=== PATIENT | female | born 1960 | race Caucasian/White ===

== ENCOUNTER 2023-10-14 15:12 | Inpatient (IN) | payer OTHER, SELFPAY ==
[2023-10-14] VITALS (19 sets, daily range): BP systolic 89–135; BP diastolic 46–109
--- NOTE | 2023-10-14 13:37 | ED.GENMED ---
History of Present Illness
<Eber Neely PA-C - Last Filed: 10/14/23 13:48>
General
Chief Complaint: Chest Pain
Time Seen by Provider: 10/14/23 13:37
Travel History
Have you had any contact with someone who has COVID-19?: No
Do you have any symptoms of coronavirus? Fever > 100 degrees, chills, cough, shortness of breath, sore throat, loss of taste or smell, muscle aches, or headache?: No
History of Present Illness
History of Present Illness:
63-year-old female with history of tobacco abuse presents to the emergency department for evaluation of chest pain beginning approximate 2 hours prior to arrival. She describes a pressure in the chest that radiates to the throat. She does endorse
having jaw and throat discomfort with exertion over the past 2 weeks that has been gradually worsening. Has never had any prior diagnosed coronary artery disease. Denies history of hypertension or hyperlipidemia. Does note a strong family history
of coronary disease. Currently reports a pain rated 8 out of 10.
Past History
<Eber Neely PA-C - Last Filed: 10/14/23 13:48>
Past History
ED Past Medical History: Hypothyroidism
ED Past Surgical History: Gynecological and Other (Cornea transplant)
Social History
Tobacco: Smoker
Alcohol: None
Living: with family
Employment: Employed
Review of Systems
<Eber Neely PA-C - Last Filed: 10/14/23 13:48>
Review of Systems
Allergies reviewed?: Yes
All Other Systems: ROS reviewed and negative except as documented in HPI and ROS
Phy Exam
<Eber Neely PA-C - Last Filed: 10/14/23 13:48>
Physical Exam
Physical Exam:
GEN: Well appearing, NAD, WDWN
HEENT: Oral mucosa moist, no scleral icterus
Cardiac: Regular rate and rhythm, no murmurs
Lung: No respiratory distress, no tachypnea lungs clear to auscultation bilaterally
MSK: No gross deformity or injuries
Skin: Good color, no pallor or jaundice, no rashes
Neuro: AO x3, moves all extremities freely
Psych: Calm, cooperative
Scores
<Eber Neely PA-C - Last Filed: 10/14/23 13:48>
Heart Score for Chest Pain Patients
STEMI patient?: Yes
Course
<Eber Neely PA-C - Last Filed: 10/14/23 13:48>
Orders/Labs/Results
Orders:
Orders
10/14/23 13:25
Electrocardiogram (*1) Urgent
Reason for Study: Chest Pain
EKG- Treatment ONCE
Complete Blood Count/With Diff Urgent
10/14/23 13:34
Heparin 5,000 units .ROUTE .STK-MED ONE
10/14/23 13:36
Comprehensive Metabolic Panel Urgent
Troponin I Urgent
10/14/23 13:37
CXR Port [CR Chest Portable - 1 View] Urgent
Comment:
Reason For Exam: chest pain
Reason Study Needs to be Portable: Unable to Transport
10/14/23 13:38
PT/INR [Prothrombin Time] Urgent
10/14/23 13:42
Aspirin Chewable [Low Strength Aspirin] 324 mg .ROUTE .STK-MED ONE
Ticagrelor [Brilinta] 180 mg .ROUTE .STK-MED ONE
<Kathy Pool MD - Last Filed: 10/14/23 13:52>
Orders/Labs/Results
Orders:
Orders
10/14/23 13:25
Electrocardiogram (*1) Urgent
Reason for Study: Chest Pain
EKG- Treatment ONCE
Complete Blood Count/With Diff Urgent
10/14/23 13:34
Heparin 5,000 units .ROUTE .STK-MED ONE
10/14/23 13:36
Comprehensive Metabolic Panel Urgent
Troponin I Urgent
10/14/23 13:37
CXR Port [CR Chest Portable - 1 View] Urgent
Comment:
Reason For Exam: chest pain
Reason Study Needs to be Portable: Unable to Transport
10/14/23 13:38
PT/INR [Prothrombin Time] Urgent
10/14/23 13:42
Aspirin Chewable [Low Strength Aspirin] 324 mg .ROUTE .STK-MED ONE
Ticagrelor [Brilinta] 180 mg .ROUTE .STK-MED ONE
<Eber Neely PA-C - Last Filed: 10/14/23 13:48>
MDM/Problems Addressed
MDM/Problems Addressed:
Show after patient's arrival and after personal review the EKG a STEMI alert was called. Patient was loaded with aspirin and Brilinta and given IV bolus of heparin. At 1331 I called interventional cardiology Dr. Espinal who is around the emergency
department to evaluate the patient. Dr. Espinal arrived at 1337 and is in agreement with take the patient urgently for intervention. Remained clinically stable in the emergency department. She has no vital sign instability or radiating pain to the
back to suggest a thoracic aortic dissection. No dyspnea to suggest acute pulmonary embolism.
<Eber Neely PA-C - Last Filed: 10/14/23 13:48>
Comment
Comment:
EKG independently interpreted by me at 1329 shows normal sinus rhythm with ST elevations inferiorly, reciprocal ST depressions laterally, suspicious for STEMI
*Critical Care Note
Total Time (30-74mins, 75-104mins- exclusive of procedures): 18 minutes
comment:
Critical care time: 18 min
Critical care time was exclusive of: Separately billable procedures, treating other patients, and teaching time
Critical care was necessary to treat or prevent imminent or life-threatening deterioration of the following conditions: STEMI
Critical care time spent personally by me on the following activities:
[x] Review of old charts
[x] Obtaining history from patient or surrogate
[x] Ordering and review of the laboratory studies
[ ] Ordering and review of radiographic studies
[x] Ordering and performing treatments and interventions
[x]Patient patient's response to treatment
[x] Development of treatment plan with patient or surrogate
<Eber Neely PA-C - Last Filed: 10/14/23 13:48>
Update Note
Update Note:
1331:
ED Attending Note
<Eber Neely PA-C - Last Filed: 10/14/23 13:48>
-
Portions of this chart may have been created with voice recognition software.� Occasional wrong word or��sound alike� substitutions may have occurred due to the inherent limitations of voice recognition software.
<Kathy Pool MD - Last Filed: 10/14/23 13:52>
ED Attending Note
Patient seen and examined by attending physician: Yes
I performed the substantive portion of visit, reviewed & personally made and approve the management plan that is documented in note by myself or JACQUI.: Yes
ED Attending Note:
63 yr with c/o sp, seen to have STEMI on triage ECG here. Patient seen by VINCENZO Lundberg, and Dr. Pro at bedside consenting patient for emergent cath. Overall patient well-appearing, pleasant, understands plan of care. Chest x-ray canceled given
patient on her way to cath now.
Discharge Plan
Departure
Patient Disposition: [facility]
Date of Disposition: 10/14/23
Time of Disposition: 13:48
Presentation/result/management discussed w/ accepting MD/DO: Cardiology Dr Pro
Discharge Problem:
ST elevation (STEMI) myocardial infarction
Prescriptions:
No Action
levothyroxine 100 MCG tablet
100 mcg PO DAILY
calcium carbonate [Oyster Shell Calcium 500] 500 MG tablet
500 mg PO BID
acetaminophen 325 MG tablet
650 mg PO Q4HPRN PRN (Reason: temp > 100.4 F) 0RF
tamsulosin 0.4 MG capsule
0.4 mg PO DAILY Qty: 14 0RF
cephalexin 500 MG capsule
500 mg PO QID Qty: 28 0RF
Interventions
Interventions:
*ED COVID-19 Vaccine History Last Done: 10/14/23 13:30
Discharge Date and Time
Print Language: MARSHALLESE
[2023-10-14 13:52] LABS: % Basophils 0.6 % (0-2); % Eosinophils 0.4 % (0-6); % Immature Granulocytes 0.4 % (0-0.5); % Lymphocytes 13.3 % (20.5-51.1); % Monocytes 3.5 % (1.7-9.3); % Neutrophils 81.8 % (42.2-75.2); Absolute Basophils 0.1 10^3/uL (0-0.2); Absolute Lymphocytes 1.1 10^3/uL (1.2-3.4); Absolute Monocytes 0.3 10^3/uL (0.1-0.6); Hematocrit 38.8 % (37.0-47.0); Hemoglobin 13.4 g/dL (12.0-16.0); Mean Corp Hgb Conc. 34.5 g/dL (33.0-37.0); Mean Corpuscular Hgb 32.9 pg (27.0-31.0); Mean Corpuscular Volume 95.3 fL (81.0-99.0); Mean Platelet Volume 9.2 fL (7.4-10.4); Nucleated Red Blood Cells % 0 %; Platelet Count 316 10^3/uL (130-400); Red Blood Cell Count 4.07 10^6/uL (4.20-5.40); Red Cell Dist. Width 12.6 % (11.5-14.5); White Blood Cell Count 8.5 10^3/uL (4.8-10.8)
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
[2023-10-14 14:05] LABS: ACT-LR - POC 184 Seconds (116-155)
[2023-10-14 14:07] LABS: ALT (SGPT) 18 U/L (0-35); AST (SGOT) 26 U/L (14-36); Albumin 4.4 g/dl (3.5-5.0); Alkaline Phosphatase 85 U/L (38-126); Blood Urea Nitrogen 12 mg/dl (7-17); Calcium 9.6 mg/dl (8.4-10.2); Carbon Dioxide 26 mmol/L (22-30); Chloride 106 mmol/L (98-107); Glucose 110 mg/dl (70-99); Potassium 4.5 mmol/L (3.5-5.1); Sodium 136 mmol/L (135-145); Total Bilirubin 0.5 mg/dl (0.2-1.3); Total Protein 6.9 g/dl (6.3-8.2); eGFR > 60.00
[2023-10-14 14:15] LABS: ACT-LR - POC 269 Seconds (116-155)
[2023-10-14 14:21] LABS: Troponin I 0.054 ng/ml
[2023-10-14 14:52] LABS: ACT-LR - POC 281 Seconds (116-155)
--- NOTE | 2023-10-14 15:01 | ITS.CL.CATH ---
[employer] Service Team Member - Catheterization
Cardiac Catheterization
Procedure Report:
LEFT HEART CATH AND CORONARY INTERVENTION
Date of Procedure: October 14, 2023
Referring: [facility] Emergency Department
PROCEDURES:
Left heart catheterization with coronary and single-plane left ventriculography
INDICATION: Evolving inferior STEMI
ACCESS: Right radial artery, 6 American sheath
HEMODYNAMICS (mmHg):
AO (s/d, m) : 135/79
LV (s/d) : 130/18
LVEDP : 24
CORONARY FINDINGS
Dominance: Right
LEFT MAIN: Short and unobstructed
LEFT ANTERIOR DESCENDING: The LAD arises normally from the left main and runs in the anterior interventricular groove. Diffuse 30-40% stenosis in the mid LAD. The LAD approaches but does not wraparound the apex. A terminal diagonal branch
parallels the LAD
CIRCUMFLEX: The circumflex is a medium caliber nondominant vessel that gives rise to a single sizable obtuse marginal branch. Minor irregularities are noted. The AV circumflex supplies a very small terminal obtuse marginal branch
RIGHT CORONARY: The right coronary artery is a dominant vessel with a 60% stenosis just proximal to an RV marginal branch. The mid to distal RCA has sluggish flow and haziness in the distal RCA becomes 100% occluded proximal to the crux in the
vessel. The distal right coronary artery was noted to fill via left to right collaterals
VENTRICULOGRAPHY: Left ventriculography was performed in an CLARK projection. The digital single-plane left ventricular ejection fraction is estimated at 40% with posterobasal, diaphragmatic, and inferior apical severe hypokinesis
ANGIOPLASTY PROCEDURE DETAIL: Upon review of the diagnostic catheterization films the decision was made to proceed with percutaneous revascularization of the 100% occluded distal RCA. Patient had received a 180 mg loading dose of ticagrelor and 324
mg of aspirin while in the emergency department. Intravenous heparin was administered in the emergency department and the ACT was monitored throughout the procedure and maintained within therapeutic limits.
The origin of the right coronary artery was cannulated with a 6 American JR4 guiding catheter and a BMW guidewire was advanced across the occluded segment and into the PDA. Balloon predilation was performed with a 2.0 x 15 mm Trek balloon. Antegrade
flow was restored to the distal RCA but the patient became profoundly hypotensive and experienced a mild bradycardic effect. A normal saline bolus was administered. The heart rate and blood pressure remain low. Atropine, 0.2 mg, was administered
with very rapid improvement in blood pressure and heart rate. The patient became nauseated. ECG changes persisted and angiography revealed the distal RCA reoccluded following balloon dilation and a 2.0 mm trek balloon was then advanced over the
guidewire and reinflation was performed. Antegrade flow was restored allowing for delivery of a 2.75 x 28 mm Xience stent to the distal RCA/crux of the vessel where it was deployed at nominal pressures. A 3.5 x 33 mm Xience stent was then advanced
over the guidewire and positioned proximal to and overlapping with the distal RCA stent. The entirety of the mid RCA was successfully stented with a 3.5 x 33 mm Xience stent. The distal stented segment was postdilated with a 3.25 mm noncompliant
balloon to high pressures while the area of stent overlapped into the proximal RCA was postdilated with high-pressure balloon inflations with a 3.5 mm noncompliant balloon with a nice angiographic result
RADIATION SUMMARY: Fluoro Time (min): 10.5, Dose (mGy): 400.4, DAP (Gy.cm2) : 34.6
CONCLUSIONS
1. Acute inferior wall myocardial infarction with 100% occlusion in the distal RCA. The distal RCA was successfully stented from the crux more proximally with a 2.75 x 28 mm Xience stent that was implanted at nominal pressures. The mid RCA and
residual atherosclerotic disease and a 3.5 x 33 mm Xience stent was then advanced over the guidewire and positioned proximal to and overlapping with the more distal stent. The distal stented segment was postdilated with a 3.25 mm noncompliant
balloon to high pressures while the area of stent overlap to the mid LAD was postdilated with a 3.5 mm noncompliant balloon
2. Ischemic cardiomyopathy with an estimated ejection fraction of 40%. The posterior basal, diaphragmatic, and inferoapical andrade are severely hypokinetic
RECOMMENDATIONS
1. Trend troponin to peak every 8 hours
2. Check echocardiogram
3. Fasting lipid profile with planned high intensity lipid-lowering
4. Uninterrupted dual antiplatelet therapy for 12 months. Will assess affordability of ticagrelor versus clopidogrel
5. Smoking cessation has been strongly encouraged
Copy to: Dr. Angelito Deal, Dr. Horacio Pro
[2023-10-14] MEDS: NSS 1000 IV (15:08)
[2023-10-14 15:46] LABS: ACT-LR - POC > 397 Seconds (116-155)
[2023-10-14] MEDS: LIPITOR 80 MG PO (17:54)
[2023-10-14] MEDS: TYLENOL 650 MG PO (18:51)
--- NOTE | 2023-10-14 23:10 | PTCARENOTE ---
Rec'd pt. at change of shift AAOx3; VSS, NSR with PVC's on the monitor. Pt. denied any CP/discomfort, right radial cath site dressing CDI with no S&S of hematoma, radial pulse palpable. Pt. did have 12 beat run VT at 2123 while talking on the
phone. Stated she didn't feel it, but did have some right sided chest discomfort approx 20 minutes earlier, lasted a few minutes, dull & achy level 2 out of 10, completely stopped prior to VT. BP 94/64, pulse ox 98% RA. Dr. FAUSTO Dickey notified,
advised to monitor for now. Pt. currently resting quietly without complaint.
[2023-10-15] VITALS (7 sets, daily range): BP systolic 87–104; BP diastolic 51–63; BMI 20.5
[2023-10-15 06:54] LABS: Hematocrit 32.1 % (37.0-47.0); Hemoglobin 10.9 g/dL (12.0-16.0); Mean Corpuscular Hgb 32.6 pg (27.0-31.0); Mean Corpuscular Volume 96.1 fL (81.0-99.0); Mean Platelet Volume 9.4 fL (7.4-10.4); Platelet Count 235 10^3/uL (130-400); Red Blood Cell Count 3.34 10^6/uL (4.20-5.40); Red Cell Dist. Width 12.5 % (11.5-14.5); White Blood Cell Count 6.8 10^3/uL (4.8-10.8)
[2023-10-15 07:19] LABS: Blood Urea Nitrogen 10 mg/dl (7-17); Calcium 8.6 mg/dl (8.4-10.2); Carbon Dioxide 25 mmol/L (22-30); Chloride 111 mmol/L (98-107); Glucose 84 mg/dl (70-99); HDL Cholesterol 44 mg/dl; LDL Cholesterol, Calculated 61 mg/dl; Potassium 3.8 mmol/L (3.5-5.1); Sodium 137 mmol/L (135-145); Total Cholesterol 126 mg/dl (50-199); Triglyceride 107 mg/dl (10-149); Very Low Density Lipoprotein 21 mg/dl (0-30); eGFR > 60.00
[2023-10-15] MEDS: BRILINTA 90 MG PO ×2 (08:13→19:44)
[2023-10-15] MEDS: KCL 20 MEQ PO (08:13)
[2023-10-15] MEDS: LOW STRENGTH ASPIRIN 81 MG PO (08:13)
[2023-10-15 08:32] LABS: Glycohemoglobin (HgbA1c) 5.4 % (4.0-5.6)
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
--- NOTE | 2023-10-15 10:12 | CM ---
Reviewed chart. Met with Ms. Dickey to review discharge plans. She states prior to admission she resides alone in a one story home with a ramp to enter. She states she resides at [facility] She states prior to admission
she was independent with ambulation and adls. She states she does not have any DME in the home. She states she has a prescription plan and uses [facility]. Telephone call to [facility] to check on co-pay for Brilinta 90 mg po bid. Her
co-pay would be $30.00 a month. She has commercial insurance so she can use the $5.00 coupon. Placed the $5.00 coupon in her red discharge folder. [facility] states they have Brilinta 90 mg po bid in stock. Medical work-up in progress. The
discharge plan is to return home when medically stable.
[2023-10-15] MEDS: TYLENOL 650 MG PO (12:19)
--- NOTE | 2023-10-15 12:20 | PTCARENOTE ---
patient c/o headache Tylenol po given as ordered.
[2023-10-15] MEDS: LIPITOR 80 MG PO (17:51)
[2023-10-15] MEDS: LOVENOX 40 MG SC (17:52)
--- NOTE | 2023-10-15 20:44 | PTCARENOTE ---
Pt received at start of shift, HR SB w/ prolonged QT. R radial cath site dressing CDI, slight ecchymosis surrounding site. Reinforced purpose of Brilinta and importance of medication adherence, pt states understanding. Pt denies any CP, SOB, or
lightheadedness/dizziness. Informed to notify RN if any changes, call davey within reach.
Pt worried about activity restrictions and resuming work as she works in floral dept at [employer], states she has to lift many heavy things in a shift.
[2023-10-16 04:35] VITALS: BP 106/65
[2023-10-16 05:14] LABS: Hematocrit 33.2 % (37.0-47.0); Hemoglobin 11.4 g/dL (12.0-16.0); Mean Corp Hgb Conc. 34.3 g/dL (33.0-37.0); Mean Corpuscular Hgb 33.2 pg (27.0-31.0); Mean Corpuscular Volume 96.8 fL (81.0-99.0); Mean Platelet Volume 9.6 fL (7.4-10.4); Platelet Count 250 10^3/uL (130-400); Red Blood Cell Count 3.43 10^6/uL (4.20-5.40); Red Cell Dist. Width 12.2 % (11.5-14.5); White Blood Cell Count 6.4 10^3/uL (4.8-10.8)
[2023-10-16 05:40] LABS: Blood Urea Nitrogen 9 mg/dl (7-17); Calcium 8.8 mg/dl (8.4-10.2); Carbon Dioxide 26 mmol/L (22-30); Chloride 109 mmol/L (98-107); Estimated Creatinine Clearance 77 ml/min; Glucose 80 mg/dl (70-99); Potassium 3.9 mmol/L (3.5-5.1); Sodium 137 mmol/L (135-145); eGFR > 60.00
[2023-10-16] MEDS: SYNTHROID 75 MCG PO (07:03)
[2023-10-16 07:32] VITALS: BP 93/60
[2023-10-16 08:47] VITALS: BP 92/59
[2023-10-16] MEDS: FLUSH (NSS) 1 FLUSH IV (08:47)
[2023-10-16] MEDS: LOW STRENGTH ASPIRIN 81 MG PO (08:47)
[2023-10-16] MEDS: BRILINTA 90 MG PO (08:47)
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
--- NOTE | 2023-10-16 10:04 | PTCARENOTE ---
Received patient this morning ambulating in her room. Right radial site open to air, mild ecchymosis, but no signs of a hematoma and a strong radial pulse is present. She is anxious to go home, waiting for cardiology to evaluate her.
[2023-10-16 11:02] VITALS: BP 97/61
--- NOTE | 2023-10-16 11:10 | W.DS.TRANS ---
DC Summary - [employer]
-
Discharge Instructions:
Discharge Diagnosis/Procedures STEMI, s/p angioplasty and stent x2 to Right
Coronary artery
Diet Low Cholesterol
Driving Restrictions As prior to admission
Other Services Cardiac Rehab
Instructions:
Stand-Alone Forms: DC Instructions- Cath/EP Lab
Return to Work
Changes to Home Medications: Yes
Discharge Medications:
DC Medications w/original date entered in [facility]
aspirin 81 mg chewable tablet (Children's Aspirin) 81 mg PO DAILY #0 tabs 10/16/23
atorvastatin 80 mg tablet 80 mg PO QPM #90 tabs 10/16/23
levothyroxine 75 mcg tablet 75 mcg PO DAILY 10/16/23
ticagrelor 90 mg tablet (Brilinta) 90 mg PO BID #180 tabs 10/16/23
Home Medication Changes
NEW: aspirin, atorvastatin, ticagrelor
Pending Results: No
--- NOTE | 2023-10-16 12:00 | PTCARENOTE ---
Reviewed discharge instructions including medications, cardiac rehab and follow up appointments with the patient and her daughter. Patient discharged home with her daughter.
== END 2023-10-16 15:11 | disposition home or self-care (01) | DRG 322 ==
LOC: IVU 15:12
PROVIDERS: Nurse Practitioner; Physician Assistant; Student in an Organized Health Care Education/Training Program; ADMITTING PHYSICIAN Internal Medicine Interventional Cardiology; EMERGENCY PHYSICIAN Emergency Medicine
PROC: 4A023N7 Measurement of Cardiac Sampling and Pressure, Left Heart, Percutaneous Approach (ICD-10-PCS; 2023-10-14)
PROC: 027035Z Dilation of Coronary Artery, One Artery with Two Drug-eluting Intraluminal Devices, Percutaneous Approach (ICD-10-PCS; 2023-10-14)
PROC: B2111ZZ Fluoroscopy of Multiple Coronary Arteries using Low Osmolar Contrast (ICD-10-PCS; 2023-10-14)
PROC: B2151ZZ Fluoroscopy of Left Heart using Low Osmolar Contrast (ICD-10-PCS; 2023-10-14)
DX: I21.19 ST elevation (STEMI) myocardial infarction involving other coronary artery of inferior wall (principal); I47.20 Ventricular tachycardia, unspecified; E03.9 Hypothyroidism, unspecified; I25.10 Atherosclerotic heart disease of native coronary artery without angina pectoris; I25.5 Ischemic cardiomyopathy; H54.61 Unqualified visual loss, right eye, normal vision left eye; R73.01 Impaired fasting glucose; M85.80 Other specified disorders of bone density and structure, unspecified site; I95.9 Hypotension, unspecified; R00.1 Bradycardia, unspecified; I49.3 Ventricular premature depolarization; I77.810 Thoracic aortic ectasia; Z79.899 Other long term (current) drug therapy; Z82.49 Family history of ischemic heart disease and other diseases of the circulatory system; Z87.891 Personal history of nicotine dependence; Z94.7 Corneal transplant status
CPT/HCPCS: 80048; 80053; 80061; 83036; 84484; 85025; 85027; 85347; 85610; 93005; 93306; 93458; 99285; C1725; C1769; C1874; C1894; C9606; Q9967

== ENCOUNTER 2023-11-21 09:49 | Outpatient (RCR) | payer OTHER, SELFPAY | END 2023-11-21 23:59 | disposition home or self-care (01) | LOC: CRHB 09:49 | PROVIDERS: ATTENDING PHYSICIAN Internal Medicine Interventional Cardiology | DX: I21.01 ST elevation (STEMI) myocardial infarction involving left main coronary artery (principal); Z95.5 Presence of coronary angioplasty implant and graft | CPT/HCPCS: 93797; 93798 ==

== ENCOUNTER 2023-12-03 08:30 | Outpatient (RCR) | payer OTHER, SELFPAY | END 2023-12-03 23:59 | disposition home or self-care (01) | LOC: CRHB 08:30 | PROVIDERS: ATTENDING PHYSICIAN Internal Medicine Interventional Cardiology; FAMILY PHYSICIAN Internal Medicine | DX: I25.10 Atherosclerotic heart disease of native coronary artery without angina pectoris (principal); I25.2 Old myocardial infarction; Z95.5 Presence of coronary angioplasty implant and graft | CPT/HCPCS: 93797; 93798 ==

== ENCOUNTER → 2023-12-03 12:28 | Outpatient (REF) | payer OTHER, SELFPAY | LOC: RAD 12:28 | PROVIDERS: ATTENDING PHYSICIAN Nurse Practitioner Family | DX: R30.0 Dysuria (principal); R31.29 Other microscopic hematuria; M54.9 Dorsalgia, unspecified; Z87.442 Personal history of urinary calculi | CPT/HCPCS: 74176 ==

== ENCOUNTER 2023-12-06 21:32 | Inpatient (IN) | payer OTHER, MEDICARE, SELFPAY ==
[2023-12-06 15:29] VITALS: BP 135/75
[2023-12-06] MEDS: OMNIPAQUE 50 ML PO (16:10)
--- NOTE | 2023-12-06 16:10 | ED.GENMED ---
History of Present Illness
General
Chief Complaint: Abdominal Pain
Source: patient
Exam Limitations: none
Time Seen by Provider: 12/06/23 15:49
Travel History
Have you had any contact with someone who has COVID-19?: No
Do you have any symptoms of coronavirus? Fever > 100 degrees, chills, cough, shortness of breath, sore throat, loss of taste or smell, muscle aches, or headache?: No
History of Present Illness
History of Present Illness:
63-year-old female presents with generalized abdominal pain weight loss and decreased appetite. She notes she lost about 15 pounds in a month. She had a myocardial infarction about a month ago. She notes urinary symptoms as well as dark-colored
urine. No fever no vomiting. She notes lack of bowel movement. No fever. She was called by her family doctor and states that her labs were abnormal. No other complaints at this time
Past History
Past History
ED Past Medical History: Hypothyroidism
ED Past Surgical History: Gynecological and Other (Cornea transplant)
Social History
Tobacco: Smoker
Alcohol: None
Living: with family
Employment: Employed
Phy Exam
Physical Exam
Physical Exam:
General: Slightly cachectic appearing female no acute respiratory distress
HEENT: Normocephalic atraumatic
Heart: Regular rate and rhythm no murmurs
Lungs: Clear no wheeze or rales
Abdomen soft tender to the epigastric and right mid abdomen. No guarding rebound normal bowel sounds nondistended
Extremities: No cyanosis
Course
Orders/Labs/Results
Orders:
Orders
12/06/23 16:03
CT Abd/pel W Iv And Oral Contr Urgent
Comment:
Reason For Exam: abdominal pain, weight loss,
Iohexol [Omnipaque] See Protocol PO NOW STA
12/06/23 16:05
Complete Blood Count/With Diff Urgent
Comprehensive Metabolic Panel Urgent
Lipase Urgent
Urinalysis Reflex To Culture Urgent
Date Specimen was Collected: 12/06/23
Time Specimen was Collected: 15:57
Urine Microscopic Reflex Cult Urgent
Urine Culture Urgent
ESCOBAR Source: U
Specimen Description:
Date Specimen was Collected: 12/06/23
Time Specimen was Collected: 15:57
12/06/23 20:28
0.9% Sodium Chloride 1000 ml [Nss] 1,000 ml IV BOLUS
CefTRIAXone [Rocephin] 1,000 mg IV NOW STA
Abnormal Lab Results
12/06/23
16:05
RBC 3.60 L 10^6/uL
(4.20-5.40)
Hgb 11.5 L g/dL
(12.0-16.0)
Hct 33.2 L %
(37.0-47.0)
MCH 31.9 H pg
(27.0-31.0)
Plt Count 432 H 10^3/uL
(130-400)
Absolute Monos (auto) 0.7 H 10^3/uL
(0.1-0.6)
Absolute Eos (auto) 0.8 H 10^3/uL
(0-0.7)
Eosinophils % 9.0 H %
(0-6)
Potassium 3.3 L mmol/L
(3.5-5.1)
Creatinine 0.5 L mg/dL
(0.6-1.0)
AST 145 H U/L
(14-36)
ALT 145 H U/L
(0-35)
Alkaline Phosphatase 1648 H U/L
(38-126)
Urine Ketones 1+ A
(Negative)
Ur Occult Blood Reflex 3+ A
(Negative)
Urine Nitrite (Reflex) Positive A
(Negative)
Urine Bilirubin 1+ A
(Negative)
Urine Urobilinogen 3+ A
(Neg - 1+)
Leukocyte Esterase Rfl 2+ A
(Negative)
Urine RBC 16-20 A /HPF
(0-2)
Urine WBC (Reflex) 26-30 A /HPF
(0-5)
Urine Bacteria (Reflex) Many A
(Negative)
12/06/23 16:05
12/06/23 16:05
Vital Signs
Initial and Last Documented VS:
Initial Vital Signs
Temp Pulse Resp BP Pulse Ox
98.1 F 95 20 135/75 98
12/06/23 15:29 12/06/23 15:29 12/06/23 15:29 12/06/23 15:29 12/06/23 15:29
Last Documented Vital Signs
Temp Pulse Resp BP Pulse Ox
98.1 F 95 20 135/75 98
12/06/23 15:29 12/06/23 15:29 12/06/23 15:29 12/06/23 15:29 12/06/23 15:29
MDM/Problems Addressed
Differential Diagnosis Includes:
Fatigue weight loss abdominal pain nausea. Consider biliary colic versus [place] versus bowel obstruction
Check labs. CT with oral and IV contrast pending.
*Critical Care Note
Total Time (30-74mins, 75-104mins- exclusive of procedures): Not Applicable
Update Note
Update Note:
Urinalysis nitrite positive with bacteria and white cells. Suspect UTI. CT demonstrates jejunal to jejunal intussusception without obvious obstruction. Spoke with general surgery regarding these findings. Given the tenderness on exam and
elevated LFTs with ongoing pain and weight loss, will keep in hospital for further evaluation. Rocephin and fluids ordered for UTI
ED Attending Note
-
Portions of this chart may have been created with voice recognition software.� Occasional wrong word or��sound alike� substitutions may have occurred due to the inherent limitations of voice recognition software.
Discharge Plan
Departure
Patient Disposition: Admit
Date of Disposition: 12/06/23
Time of Disposition: 20:33
Admit to: Telemetry
Presentation/result/management discussed w/ accepting MD/DO: Hospitalist
Discharge Problem:
Acute UTI, Intussusception
Prescriptions:
No Action
Brilinta 90 mg Tablet
90 mg PO BID Qty: 180 3RF
atorvastatin 80 mg Tablet
80 mg PO QPM Qty: 90 3RF
aspirin [Children's Aspirin] 81 mg Tablet,Chewable
81 mg PO DAILY Qty: 0 0RF
levothyroxine 75 mcg Tablet
75 mcg PO DAILY
Referrals:
Angel Theodore MD [Family Provider] -
Interventions
Interventions:
*ED COVID-19 Vaccine History Last Done: 12/06/23 15:29
FY-Pjgghb-Edjiodtcmr Assessment Last Done: 12/06/23 16:14
Discharge Date and Time
Print Language: CYPRIOT
[2023-12-06 16:15] LABS: % Basophils 1.4 % (0-2); % Immature Granulocytes 0.5 % (0-0.5); % Lymphocytes 27.1 % (20.5-51.1); % Monocytes 8.3 % (1.7-9.3); % Neutrophils 53.7 % (42.2-75.2); Absolute Basophils 0.1 10^3/uL (0-0.2); Absolute Eosinophils 0.8 10^3/uL (0-0.7); Absolute Lymphocytes 2.3 10^3/uL (1.2-3.4); Absolute Monocytes 0.7 10^3/uL (0.1-0.6); Absolute Neutrophils 4.5 10^3/uL (1.4-6.5); Hematocrit 33.2 % (37.0-47.0); Hemoglobin 11.5 g/dL (12.0-16.0); Mean Corp Hgb Conc. 34.6 g/dL (33.0-37.0); Mean Corpuscular Hgb 31.9 pg (27.0-31.0); Mean Corpuscular Volume 92.2 fL (81.0-99.0); Mean Platelet Volume 9.7 fL (7.4-10.4); Nucleated Red Blood Cells % 0 %; Platelet Count 432 10^3/uL (130-400); Red Cell Dist. Width 12.8 % (11.5-14.5); White Blood Cell Count 8.3 10^3/uL (4.8-10.8)
[2023-12-06 16:23] LABS: Urine Albumin Trace (Neg - Trace); Urine Bilirubin 1+ (Negative); Urine Character Slightly Cloudy (Clear); Urine Color Amber; Urine Glucose Negative (Negative); Urine Ketone 1+ (Negative); Urine Leukocyte 2+ (Negative); Urine Nitrite Positive (Negative); Urine Occult Blood 3+ (Negative); Urine Specific Gravity 1.025 (<1.030); Urine Urobilinogen 3+ (Neg - 1+)
[2023-12-06 16:27] LABS: ALT (SGPT) 145 U/L (0-35); AST (SGOT) 145 U/L (14-36); Albumin 3.8 g/dl (3.5-5.0); Blood Urea Nitrogen 9 mg/dl (7-17); Calcium 9.4 mg/dl (8.4-10.2); Carbon Dioxide 28 mmol/L (22-30); Chloride 103 mmol/L (98-107); Glucose 91 mg/dl (70-99); Lipase 236 U/L (23-300); Potassium 3.3 mmol/L (3.5-5.1); Sodium 139 mmol/L (135-145); Total Protein 7.2 g/dl (6.3-8.2); eGFR > 60.00
[2023-12-06 16:37] LABS: Alkaline Phosphatase 1648 U/L (38-126)
[2023-12-06 16:46] LABS: Urine Bacteria Many (Negative); Urine Mucus Few; Urine Red Blood Cell 16-20 /HPF (0-2); Urine White Cell 26-30 /HPF (0-5)
[2023-12-06 16:47] LABS: Urine Calcium Oxalate Crystals Present
[2023-12-06] MEDS: NSS 1000 IV ×2 (20:38→22:51)
[2023-12-06] MEDS: ROCEPHIN 1000 MG IV (20:39)
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
[2023-12-06 20:42] VITALS: BP 113/63
[2023-12-06 22:00] VITALS: BP 111/72
[2023-12-06] MEDS: BRILINTA PO (22:34)
[2023-12-06 22:45] VITALS: BP 113/67; BMI 19.3
[2023-12-06 23:00] VITALS: BP 113/67
[2023-12-06] MEDS: BENADRYL 25 MG PO (23:53)
[2023-12-07 03:00] VITALS: BP 108/59
[2023-12-07] MEDS: SYNTHROID 75 MCG PO (06:24)
[2023-12-07 07:00] VITALS: BP 104/58
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
[2023-12-07 08:25] LABS: % Basophils 1.3 % (0-2); % Eosinophils 9.2 % (0-6); % Immature Granulocytes 0.4 % (0-0.5); % Lymphocytes 26.6 % (20.5-51.1); % Monocytes 6.9 % (1.7-9.3); % Neutrophils 55.6 % (42.2-75.2); Absolute Basophils 0.1 10^3/uL (0-0.2); Absolute Eosinophils 0.6 10^3/uL (0-0.7); Absolute Lymphocytes 1.9 10^3/uL (1.2-3.4); Absolute Monocytes 0.5 10^3/uL (0.1-0.6); Absolute Neutrophils 3.9 10^3/uL (1.4-6.5); Mean Corp Hgb Conc. 33.3 g/dL (33.0-37.0); Mean Corpuscular Volume 95.9 fL (81.0-99.0); Mean Platelet Volume 10.1 fL (7.4-10.4); Nucleated Red Blood Cells % 0 %; Platelet Count 391 10^3/uL (130-400); Red Blood Cell Count 3.44 10^6/uL (4.20-5.40); Red Cell Dist. Width 12.8 % (11.5-14.5)
[2023-12-07 08:58] LABS: ALT (SGPT) 111 U/L (0-35); AST (SGOT) 116 U/L (14-36); Albumin 3.1 g/dl (3.5-5.0); Blood Urea Nitrogen 6 mg/dl (7-17); Calcium 8.3 mg/dl (8.4-10.2); Carbon Dioxide 28 mmol/L (22-30); Chloride 106 mmol/L (98-107); Estimated Creatinine Clearance 73 ml/min; Glucose 78 mg/dl (70-99); Magnesium 2.1 mg/dl (1.6-2.3); Potassium 3.3 mmol/L (3.5-5.1); Sodium 140 mmol/L (135-145); Total Protein 5.9 g/dl (6.3-8.2); eGFR > 60.00
[2023-12-07 09:12] LABS: Alkaline Phosphatase 1583 U/L (38-126)
[2023-12-07] MEDS: STERILE WATER FOR INJECTION 10 ML IV (09:48)
[2023-12-07] MEDS: BRILINTA 90 MG PO (09:49)
[2023-12-07] MEDS: ROCEPHIN 1000 MG IV (09:49)
[2023-12-07] MEDS: LOW STRENGTH ASPIRIN 81 MG PO (09:49)
[2023-12-07 10:38] LABS: Iron 93 ug/dl (37-170)
[2023-12-07 10:48] LABS: Percent Saturation 36 % (20-50); Total Iron Binding Capacity 258 ug/dl (265-497)
[2023-12-07 11:00] VITALS: BP 108/56
[2023-12-07 11:44] VITALS: BMI 19.3
--- NOTE | 2023-12-07 11:58 | CON.GS ---
Addendum entered and electronically signed by Asael Eaton MD 12/13/23 15:50:
Date correction:
Date/Time Consultation Requested: 12/07/2023 7 PM
Date/Time Consultation Performed: 12/07/2023 11 AM
Original Note:
Consultation
-
Date/Time Consultation Requested: 12/06/2023 7 PM
Date/Time Consultation Performed: 12/06/2023 11 AM
Requesting Provider: Emergency department
Performing Provider: Dr. Eaton
Reason for Consultation: Small bowel-small bowel intussusception
Medical History
-
Chief Complaint: Abdominal pain, anorexia and weight loss.
History of Present Illness:
This is a 63-year-old female with a history of hypothyroidism, corneal implant, renal stones, hysterectomy and recent MA with drug-eluting stents placed in September of this year currently on ASA and Brilinta who presented to our emergency department
yesterday for generalized abdominal pain, weight loss and anorexia. On admission her hemoglobin was 11.5, elevated transaminitis with alk phos toe 1648. Of note she had recent outpatient labs with similarly elevated liver enzymes. She had a CT
scan performed on 12/02 with no acute findings but had a repeat 1 yesterday 12/05 which demonstrated a small segment of small bowel-small bowel intussusception in the left upper/mid abdomen. Of note she has never had a colonoscopy and did have a
positive Cologuard in 2020 with no follow-up. She denies any changes to her stool or stool caliber however has been constipated over the past few days which is unusual for her. Since having the oral contrast from the CT scan though she has moved
her bowels and feels well. Today, she is feeling better. She is able to tolerate clears.
Past Medical History
Past Medical History: Other (Hypothyroidism, MA, pyelonephritis, osteopenia.)
Past Surgical History: Other (Hysterectomy, bilateral breast implants.)
Social History
Tobacco: Former Smoker
Alcohol: None
Drug: None
Living: Alone
Employment: Employed
Family History
Family History: Other (Mother with pancreatic cancer, 'colon Polyps run in my family')
Allergies / Home Medications
Allergy/AdvReac Type Severity Reaction Status Date / Time
No Known Allergies Allergy Unverified 09/27/19 15:31
�Medication �Instructions �Recorded �Confirmed �Type
aspirin 81 mg chewable tablet 81 mg PO DAILY #0 tabs 10/16/23 12/06/23 Rx
(Children's Aspirin)
atorvastatin 80 mg tablet 80 mg PO QPM #90 tabs 10/16/23 12/06/23 Rx
ticagrelor 90 mg tablet (Brilinta) 90 mg PO BID #180 tabs 10/16/23 12/06/23 Rx
levothyroxine 88 mcg tablet 88 mcg PO DAILY 12/06/23 12/06/23 History
nitrofurantoin 100 mg PO Q12H 12/06/23 12/06/23 History
monohydrate/macrocrystals 100 mg
capsule
Review of Systems
-
All other systems: Negative unless noted
A 10 point review of systems was completed, and was negative except as per HPI.
Physical Exam
Vital Signs
Temp Pulse Resp BP Pulse Ox
98.6 F 56 18 108/56 99
12/07/23 11:00 12/07/23 11:00 12/07/23 11:00 12/07/23 11:00 12/07/23 11:00
12/06/23 12/07/23 12/08/23
06:59 06:59 06:59
Actual Weight 49.396 kg
Body Mass Index (BMI) 19.3
Lab Results
12/07/23 05:46
12/07/23 05:46
WBC 7.0 10^3/uL (4.8-10.8) 12/07/23 05:46
Hgb 11.0 g/dL (12.0-16.0) L 12/07/23 05:46
Hct 33.0 % (37.0-47.0) L 12/07/23 05:46
Plt Count 391 10^3/uL (130-400) 12/07/23 05:46
Abs Immat Gran (auto) 0.0 10^3/uL (0-0.05) 12/07/23 05:46
Neutrophils % 55.6 % (42.2-75.2) 12/07/23 05:46
Physical Exam
General: Other ( no acute distress, thin though not overly cachectic appearing.)
HEENT: Normocephalic
Respiratory: Non Labored Respirations
GI: Soft, Non Tender and Non Distended
Data Reviewed
-
CT Scan: Image Personally Visualized and interpreted, Report Reviewed by me, Discussed with Physician and Discussed with Patient
Labs: Labs Reviewed by me, Discussed with Physician and Discussed with Patient
Total Time Spent with Patient (in minutes): 50
Assessment / Plan
-
This is a 63-year-old female with a history of hysterectomy, recent MA status post drug-eluting stents in September of this year on ASA and Brilinta (last dose today) who presents with abdominal pain, constipation and found to have elevated LFTs on
outpatient labs and small bowel small bowel intussusception on this admission CT scan though had recent CT chest 3 days ago which was normal. Her exam is reassuring. Her liver enzymes remain elevated. She has a positive Cologuard with no
follow-up.
In general with a small bowel small bowel intussusception, particular in the setting of weight loss in an adult I am fairly concerned about cancer as lead point however the segment is very small only 3 cm and not particularly dilated. There is no
obstruction, contrast moved readily through that portion of the bowel and there is no obvious mass on CT. Furthermore she has a CT scan from just 3 days ago which demonstrates no pathology.
No acute general surgical intervention warranted at this time.
Okay to continue anticoagulation and diet per primary.
Appreciate GI workup, added on a CEA and CA 19-9. I expressed to the patient that she should have an outpatient colonoscopy as soon as possible.
General surgery will sign off for now, dispo per GI and primary.
Please call with any questions, happy to see the patient in follow-up as needed.
--- NOTE | 2023-12-07 12:24 | W.PN.HOSP.TC ---
Addendum entered and electronically signed by Katharine Blanc MD 12/07/23 13:52:
Addendum
pt feels better, wants to go home and do the follow up in office
Script for US & Blood work given. d/w GI, ok to do as OP
Headache, improved with Tylenol
Hypokalemia, given oral KCl
d/w pt the dc instructions, she verbalized understanding
End
Original Note:
Today's Communication/Plan
-
dc
Assessment / Plan
Assessment / Plan
Physical Exam
Exam
General: Other (thin appearing minimal jaundice )
HEENT: Normocephalic
Respiratory: Clear
Cardiac: Regular Rhythm
GI: Soft, Non Tender and Non Distended
Musculoskeletal: No Clubbing and No Cyanosis
Skin: Warm and Dry
Neuro: Awake, Alert and AO x 3
Psych: Calm
63 years old female with history of recent STEMI status post 2 stent came to the ER with abdominal pain found to have UTI and CT abdomen/pelvis showed Evidence of jejunal intussusception in the left mid abdomen. patient has no tenderness and no
nausea vomiting.
PLAN:
#UTI with Diphtheroids
s/ Rcephin, change to ampicillin
No dysuria. No retention. She feels better.
# CT showed possible Jejunal intussusception.
CT abdomen shows:
Evidence of jejunal intussusception in the left mid abdomen. The length with a prolapsing part (intussusceptum) is approximately 3 cm. There is mild wall thickening of the intussuscipiens, measuring approximately 8.5 mm in thickness. No evidence of
pneumatosis. No focal mass identified. Ingested oral contrast has passed through the small bowel and is situated in the colon, without evidence of obstruction. Minor sigmoid diverticulosis. No evidence of acute diverticulitis.
Patient has no tenderness on physical exam.
No nausea or vomiting.
No evidence of obstruction, patient has 3 bowel movement tolerated clear diet. Discussed with surgery, okay to resume diet and follow as Outpatient, added on a CEA and CA 19-9
Transaminitis
Patient with significant alk phos elevation.
ALT and AST elevated
No abdominal pain. No jaundice. Patient was seen by GI doctor. Recommended liver serology including hepatitis panel, AMA, ZULMA, iron studies. Ultrasound of the abdomen for ductal dilation. Patient will follow GI in the office.
Recent STEMI.
Continue aspirin/Brilinta.
Resume home medication
Hypothyroidism.
Recent TSH was low and high free T4.
Will change levothyroxine 88 mcg to 75 mcg
Follow TSH and free T4 on 6-8 weeks.
DVT prophylaxis: Lovenox
Diet: Clear liquid
CODE STATUS: Full code
Patient is anxious to leave. Will discharge the patient to follow-up with doctors in the office.
Total discharge time spent to see the patient, examine the patient on the floor, review data and lab results, discuss discharge plan with patient, nursing staff around 65 minutes
Anticipated Discharge: Today
Subjective/Interval History
-
Date of Service: December 07, 2023
She feels better
Objective Data
-
Labs:
Laboratory Results
12/07/23
05:46
WBC 7.0
Hgb 11.0 L
Hct 33.0 L
Plt Count 391
Sodium 140
Potassium 3.3 L
Chloride 106
Carbon Dioxide 28
BUN 6 L
Creatinine 0.5 L
Glucose 78
Calcium 8.3 L
Total Bilirubin 1.0
AST 116 H
ALT 111 H
Alkaline Phosphatase 1583 H
Vital Signs:
Vital Signs
Temp Pulse Resp BP Pulse Ox
98.6 F 56 18 108/56 99
12/07/23 11:00 12/07/23 11:00 12/07/23 11:00 12/07/23 11:00 12/07/23 11:00
I&O
12/06/23 12/07/23 12/08/23
06:59 06:59 06:59
Intake Total 720 / 720
Balance 720 / 720
--- NOTE | 2023-12-07 12:50 | CM ---
Met with pt at bedside
Lives alone in a ranch style home
Working FT, drives, independent
DME - none
SNF - [facility] in [place]
HH - [facility] in past
Has transportation at d/c
PCP - [facility]
Pharm - [place]
Plan - anticipate home no needs
--- NOTE | 2023-12-07 13:06 | W.DCSUMMARY ---
Discharge Summary
Discharge Data
Date of Admission: 12/06/23
Date of Discharge: 12/07/23
-
Pending Results: No
Hospital Course
63 years old female presented to the emergency room with abdominal pain. Patient had urinary tract symptoms and she was taking Macrobid at home. Her urinary symptoms were getting better. Scan of the abdomen and pelvis showed evidence of jejunal
intussusception in the left mid abdomen. The length with a prolapsing part (intussusceptum) was approximately 3 cm. There was mild wall thickening of the intussuscipiens, measuring approximately 8.5 mm in thickness. No evidence of pneumatosis. No
focal mass identified. Ingested oral contrast has passed through the small bowel and is situated in the colon, without evidence of obstruction. Minor sigmoid diverticulosis. No evidence of acute diverticulitis.
She was noted to have elevated liver enzymes. Patient was evaluated by surgery. Evaluation revealed no obstruction as contrast moved through the portion of the bowel seen on the scan. Patient tolerated diet with resolution of her abdominal
discomfort. No nausea or vomiting. Patient was evaluated by gastroenterology, recommended outpatient follow-up for positive Cologuard test and elevated liver enzymes. Repeat blood work showed reduction in liver enzymes. Patient was kept on dual
antiplatelet therapy for recent cardiac intervention. She was given prescription to repeat blood work and ultrasound as outpatient. Patient was advised to continue course of Macrobid since her urinary symptoms were resolving. Patient did not have
fever or leukocytosis. She had outpatient testing for thyroid function that showed suppressed thyroid-stimulating hormone level, she was given reduced dose of Synthroid. Patient remained hemodynamically stable and was discharged in a stable
condition.
Discharge Plan
-
Patient Disposition: Home (Routine Discharge)
Discharge Diagnosis/Procedures: Abdominal pain
Urinary tract infection, finish the course of Macrobid you have at home.
Hypokalemia
Elevated liver enzymes . do blood work and US and follow with GI doctor
Hypothyroidism, we lowered dose of Synthroid.
Diet: Low Fat
Referrals:
Og Clancy MD [Active] - in one to two weeks
Angel Theodore MD [Family Provider] -
Prescriptions:
New
nitrofurantoin macrocrystal 100 mg capsule
100 mg PO BID Qty: 1 0RF
levothyroxine [Synthroid] 75 mcg tablet
75 mcg PO DAILY Qty: 30 0RF
Continued
Brilinta 90 mg Tablet
90 mg PO BID Qty: 180 3RF
atorvastatin 80 mg Tablet
80 mg PO QPM Qty: 90 3RF
Patient Comments:
12/06/2023: CURRENTLY ON HOLD
aspirin [Children's Aspirin] 81 mg Tablet,Chewable
81 mg PO DAILY Qty: 0 0RF
Discontinued
levothyroxine 88 mcg tablet
88 mcg PO DAILY
nitrofurantoin monohyd/m-cryst 100 mg capsule
100 mg PO Q12H
Discharge Orders:
Discharge Patient (As Directed); Ordered 12/07/23
Ordered By: Katharine Blanc
Discharge Date and Time
Print Language: BOLIVIAN
[2023-12-07] MEDS: KCL 40 MEQ PO (14:09)
[2023-12-07] MEDS: TYLENOL 1000 MG PO (14:09)
[2023-12-07] MEDS: NSS IV (14:09)
[2023-12-09 00:26] LABS: ANA, IgG Reflex to HEp-2 None Detected (None Detected)
[2023-12-09 01:48] LABS: Mitochondrial M2 Ab, IgG 3.1 Units (0.0-24.9)
[2023-12-09 11:39] LABS: CA 19-9 20 U/mL (<=35)
[2023-12-09 19:27] LABS: Hepatitis B Surface Antigen Negative (Negative)
[2023-12-09 19:46] LABS: Hepatitis B Core Ab, Total Negative (Negative); Hepatitis B Surface Antibody Negative; Hepatitis C Antibody Negative (Negative)
[2023-12-09 20:05] LABS: Hepatitis A Antibody, Total Negative (Negative)
[2023-12-10 19:06] LABS: Alpha-1-Antitrypsin 210 mg/dL (90-200); Alpha-1-Antitrypsin Phenotype M1M1
[2023-12-10 21:27] LABS: LKM-1 Ab (IgG) 1.1 U (0.0-24.9); Soluble Liver Antigen Ab 2.3 U (0.0-24.9)
== END 2023-12-07 14:25 | disposition home or self-care (01) | DRG 690 ==
LOC: 3 WEST ACU 21:32
PROVIDERS: Nurse Practitioner Adult Health; Physician Assistant; ADMITTING PHYSICIAN General Practice; ATTENDING PHYSICIAN Internal Medicine; CONSULT PHYSICIAN Internal Medicine Gastroenterology; CONSULT PHYSICIAN Surgery; EMERGENCY PHYSICIAN Emergency Medicine; FAMILY PHYSICIAN Internal Medicine Geriatric Medicine
DX: N39.0 Urinary tract infection, site not specified (principal); K56.1 Intussusception; Z68.1 Body mass index [BMI] 19.9 or less, adult; R64 Cachexia; E03.9 Hypothyroidism, unspecified; I25.10 Atherosclerotic heart disease of native coronary artery without angina pectoris; R73.01 Impaired fasting glucose; L29.9 Pruritus, unspecified; D64.9 Anemia, unspecified; E87.6 Hypokalemia; R51.9 Headache, unspecified; R31.9 Hematuria, unspecified; B96.89 Other specified bacterial agents as the cause of diseases classified elsewhere; K57.30 Diverticulosis of large intestine without perforation or abscess without bleeding; R74.01 Elevation of levels of liver transaminase levels; E88.09 Other disorders of plasma-protein metabolism, not elsewhere classified; N20.0 Calculus of kidney; I25.2 Old myocardial infarction; Z95.5 Presence of coronary angioplasty implant and graft; Z87.891 Personal history of nicotine dependence; Z79.82 Long term (current) use of aspirin; Z79.02 Long term (current) use of antithrombotics/antiplatelets; R63.0 Anorexia; Z94.7 Corneal transplant status; R19.5 Other fecal abnormalities; Z87.442 Personal history of urinary calculi; Z79.890 Hormone replacement therapy
CPT/HCPCS: 74177; 80053; 81003; 81015; 82103; 82104; 82378; 82728; 83516; 83540; 83550; 83690; 83735; 85025; 86038; 86301; 86376; 86381; 86704; 86705; 86706; 86708; 86709; 86803; 87086; 87340; 96361; 96374; 99285; Q9967

== ENCOUNTER → 2024-01-02 06:58 | Outpatient (REF) | payer OTHER, MEDICARE, SELFPAY | LOC: RAD 06:58 | PROVIDERS: ATTENDING PHYSICIAN Nurse Practitioner Family; REFERRING PHYSICIAN Internal Medicine Gastroenterology | DX: Z87.891 Personal history of nicotine dependence (principal); Z82.49 Family history of ischemic heart disease and other diseases of the circulatory system | CPT/HCPCS: 76700; 76770 ==

== ENCOUNTER → 2024-03-05 07:59 | Outpatient (REF) | payer OTHER, MEDICARE, SELFPAY | LOC: PAVMRI 07:59 | PROVIDERS: ATTENDING PHYSICIAN Physician Assistant; FAMILY PHYSICIAN Nurse Practitioner Family | DX: R78.89 Finding of other specified substances, not normally found in blood (principal) | CPT/HCPCS: 74183; A9575 ==

== ENCOUNTER → 2024-03-10 07:57 | Outpatient (REF) | payer OTHER, MEDICARE, SELFPAY | LOC: HWRAD 07:57 | PROVIDERS: ATTENDING PHYSICIAN Nurse Practitioner Family | DX: Z12.31 Encounter for screening mammogram for malignant neoplasm of breast (principal); Z13.820 Encounter for screening for osteoporosis | CPT/HCPCS: 77063; 77067; 77080 ==

== ENCOUNTER → 2024-03-23 08:29 | Outpatient (REF) | payer OTHER, MEDICARE, SELFPAY | LOC: HWRAD 08:29 | PROVIDERS: ATTENDING PHYSICIAN Internal Medicine Gastroenterology; FAMILY PHYSICIAN Nurse Practitioner Family | DX: R19.5 Other fecal abnormalities (principal) | CPT/HCPCS: 74261 ==

== ENCOUNTER → 2024-12-17 11:35 | Outpatient (REF) | payer MEDICARE, OTHER, SELFPAY | LOC: RCS 11:35 | PROVIDERS: ATTENDING PHYSICIAN Physician Assistant; FAMILY PHYSICIAN Nurse Practitioner Family | DX: I25.2 Old myocardial infarction (principal); I25.10 Atherosclerotic heart disease of native coronary artery without angina pectoris; Z95.5 Presence of coronary angioplasty implant and graft; R07.89 Other chest pain | CPT/HCPCS: 78452; 93017; A9500 ==